=== PATIENT | female | born 1995 | race African-American/Black ===

== ENCOUNTER 2021-07-26 03:31 | Emergency (ER) | payer OTHER ==
[~2021-07-26] VITALS: Ht 180.3 cm; Wt 59.4 kg
[~2021-07-26 03:31] MED LIST: ACYCLOVIR 400400 MG; [UNRECOGNIZED DRUG - MIXTURE]
[2021-07-26] MEDS ORDERED: BUSPIRONE HCL15 MG PO (03:40)
[2021-07-26] MEDS ORDERED: PROZAC20 M1 PO (03:40)
[2021-07-26] MEDS ORDERED: ABILIFY 5 MG TAB5 MG PO (03:40)
[2021-07-26] MEDS ORDERED: VISTARIL 25 MG25 M1 PO (04:18)
[2021-07-26 04:39] VITALS: BP 127/64
== END 2021-07-26 04:35 | disposition home or self-care (01) ==
LOC: ER 03:31
DX: G47.00 Insomnia, unspecified (principal); Z79.82 Long term (current) use of aspirin; Z79.899 Other long term (current) drug therapy